=== PATIENT | male | born 1955 | race Caucasian/White ===

== ENCOUNTER 2024-07-27 19:36 | Emergency (ER) | payer MEDICARE, OTHER, SELFPAY ==
[2024-07-27 19:41] VITALS: BP 158/108
--- NOTE | 2024-07-27 22:26 | ED.SKININJ ---
HPI-Injury
General
Chief Complaint: Bite
Time Seen by Provider: 07/27/24 21:04
History of Present Illness-Injury
Initial Injury comments:
68-year-old male with no reported past medical history presenting to the emergency department for concern of dog bite. Patient reports prior to arrival his dog got triggered, 9-month-old puppy, and subsequently bit him in the left first digit. He
reports that the dog's vaccination status is up-to-date. The dog also bit his , so the reader was called who advised that they put the dog down. His tetanus is up-to-date. Denies numbness or tingling to his extremity. Denies additional acute
medical complaints
Phy Exam
Physical Exam
Physical Exam:
General: Well-appearing, no clinical signs of dehydration, nontoxic and in no acute distress
HEENT: protecting airway
Neck: appears supple
CV: Normal heart rate
Resp: No accessory muscle use, no increased work of breathing
Abd: no distension
Extremities: Multiple puncture wounds to the left first digit on the dorsal and ventral side. Superficial laceration at the PIP. Mild swelling. Distal sensation intact. Range of motion intact
Neuro: alert, no focal neurologic deficit
: deferred
Rectal: deferred
Psych: Normal affect
Skin: Intact
Course
Orders/Labs/Results
Orders:
Orders
07/27/24 22:26
Amoxicillin 875 mg/Clav 125 mg [Augmentin 875 mg/125 mg] 1 tablet PO NOW STA
Vital Signs
Initial and Last Documented VS:
Initial Vital Signs
Temp Pulse Resp BP Pulse Ox
98.7 F 108 17 158/108 99
07/27/24 19:41 07/27/24 19:41 07/27/24 19:41 07/27/24 19:41 07/27/24 19:41
Last Documented Vital Signs
Temp Pulse Resp BP Pulse Ox
98.7 F 108 17 158/108 99
07/27/24 19:41 07/27/24 19:41 07/27/24 19:41 07/27/24 19:41 07/27/24 19:41
MDM/Problems Addressed
MDM/Problems Addressed:
68-year-old male presenting to the emergency department after a dog bite from his own dog. Vital signs significant for hypertension, however patient very upset on arrival.
On exam, resting comfortably, no acute distress or discomfort. Patient is superficial lacerations to left first digit. Reports that his tetanus is up-to-date. Reports that dog's rabies vaccinations up-to-date, without indication for rabies
series. Wound was extensively irrigated and dressed with bacitracin and nonadherent dressing. No indication for sutures at this time. Feel stable for discharge with wound reassessment in 2 to 3 days. Patient started on Augmentin. Return
precautions discussed and patient verbalized understanding
*Critical Care Note
Total Time (30-74mins, 75-104mins- exclusive of procedures): Not Applicable
ED Attending Note
-
Portions of this chart may have been created with voice recognition software.� Occasional wrong word or��sound alike� substitutions may have occurred due to the inherent limitations of voice recognition software.
Discharge Plan
Departure
Patient Disposition: Home (Routine Discharge)
Date of Disposition: 07/27/24
Time of Disposition: 22:24
Patient with high blood pressure during this ER visit?: Yes
Condition: Good
Discharge Problem:
Infected dog bite of left index finger
Instructions: Animal Bites (DC), Wound Care (DC)
Prescriptions:
New
amoxicillin-pot clavulanate 875-125 mg tablet
1 tab PO BID Qty: 14 0RF
Referrals:
Deng Solorzano DO [Family Provider] -
Activity Restrictions/Additional Instructions:
You were seen in the emergency department for dog bites
You were found to have multiple bites your left index finger. Please take your antibiotics as prescribed. If you find any increased swelling, redness, or abnormal drainage, return for concern of infection
Please follow-up closely with your primary care physician.
Return to the emergency department for any worsening of your symptoms, or any development of chest pain, difficulty breathing, abdominal pain with persistent vomiting and inability to tolerate food or liquid by mouth (concern for dehydration),
weakness, headache or confusion, fever greater than 100.4, or any additional symptoms that are concerning to you.
Thank you for choosing [facility].
Interventions
Interventions:
*Risk Screen - Suicide Last Done: 07/27/24 19:43
*General Assessment Last Done: 07/27/24 19:42
*Neglect/Abuse Screening Last Done: 07/27/24 19:42
*ED COVID-19 Vaccine History Last Done: 07/27/24 19:42
ED-Skin Assessment Last Done: 07/27/24 21:32
Discharge Date and Time
Print Language: BENGALI
[2024-07-27] MEDS: AUGMENTIN 875 MG/125 MG 1 TABLET PO (22:30)
== END 2024-07-27 22:42 | disposition home or self-care (01) ==
LOC: EMR 19:36
PROVIDERS: EMERGENCY PHYSICIAN Student in an Organized Health Care Education/Training Program; FAMILY PHYSICIAN Family Medicine
DX: L08.9 Local infection of the skin and subcutaneous tissue, unspecified (principal); S61.251A Open bite of left index finger without damage to nail, initial encounter; W54.0XXA Bitten by dog, initial encounter
CPT/HCPCS: 99282

== ENCOUNTER 2024-11-13 21:33 | Emergency (ER) | payer MEDICARE, OTHER, SELFPAY ==
[2024-11-13 21:40] VITALS: BP 132/98
--- NOTE | 2024-11-13 23:46 | ED.GENMED ---
History of Present Illness
General
Chief Complaint: Skin Surface Trauma
Source: patient
Exam Limitations: none
Time Seen by Provider: 11/13/24 23:42
Nursing documentation reviewed up to this point in time: agreed with
History of Present Illness
History of Present Illness:
This is a 69 y/o male with no pmh who presents to the emergency department today with concerns of a laceration of his right upper arm. Patient reports that he was working outside today when he was having a conversation with his and got
distracted and stretched his arm back, hitting his arm against the ladder and cutting his right upper arm on the ladder behind him. He received his tetanus vaccination update within the past year. Patient did not fall. Patient denies any other
injuries. Patient states that after the injury he immeadiatley irrigated the wound and applied wound gel.
Review of Systems
Review of Systems
All Other Systems: ROS reviewed and negative except as documented in HPI and ROS
Phy Exam
Physical Exam
Physical Exam:
General: Patient is well appearing and in no acute distress; non-toxic
Skin: Warm and dry, 4 cm v shaped laceration to right anterior proximal arm, scattered abrasions noted over right forearm; brisk capillary refill
Head: Normocephalic, atraumatic
Eyes: Sclera non-icteric. EOMs intact.
Cardiac: Regular rate
Peripheral Vascular: No lower extremity swelling or edema
Pulm: Normal respiratory effort
Musculoskeletal: No bony tenderness to palpation of the right upper extremity, full ROM
Neuro: CN II-XII intact, no focal neurologic deficits. Sensation intact.
Psychiatric: Appropriate mood and affect.
Course
Vital Signs
Initial and Last Documented VS:
Initial Vital Signs
Temp Pulse Resp BP Pulse Ox
98 F 119 18 132/98 96
11/13/24 21:40 11/13/24 21:40 11/13/24 21:40 11/13/24 21:40 11/13/24 21:40
Last Documented Vital Signs
Temp Pulse Resp BP Pulse Ox
98 F 119 18 132/98 96
11/13/24 21:40 11/13/24 21:40 11/13/24 21:40 11/13/24 21:40 11/13/24 21:40
Procedures
Laceration Closure
Right Proximal Arm:
Status of Wound: clean
Size of Wound in cm: 4
Description of Wound Edges: flap-well vascularized
Preparation: cleaned with saline
Anesthesia: 1% Lidocaine with epi
Revision/Debridement: routine- no revision
Wound exploration: explored to base- no FB
Skin Closure Material: skin charles
Number of sutures: 7
MDM/Problems Addressed
Differential Diagnosis Includes:
ddx include laceration, abrasion, contusion
MDM/Problems Addressed:
This is a 69 y/o male with no pmh who presents to the emergency department today with concerns of a laceration of his right upper arm. This happened after he scrapped his arm on a ladder that was propped up against his house. Patient does not take
any thinners. He denies any other injuries. He is UTD on his vaccinations. Wound throughly irrigated, no indication for abx at this time, wound repaired with stitches, patient stable for discharge.
Chronic conditions affecting care:
n/a
*Pulse Oximetry
Patient hypoxic: no
*Critical Care Note
Total Time (30-74mins, 75-104mins- exclusive of procedures): Not Applicable
ED Attending Note
-
Portions of this chart may have been created with voice recognition software.� Occasional wrong word or��sound alike� substitutions may have occurred due to the inherent limitations of voice recognition software.
Discharge Plan
Departure
Patient Disposition: Home (Routine Discharge)
Date of Disposition: 11/14/24
Time of Disposition: 01:10
Patient with high blood pressure during this ER visit?: Yes
Condition: Good
Discharge Problem:
Laceration of arm
Instructions: Laceration Repair With Stitches (DC), BLOOD PRESSURE
Prescriptions:
No Action
amoxicillin-pot clavulanate 875-125 mg tablet
1 tab PO BID Qty: 14 0RF
Referrals:
Deng Solorzano DO [Family Provider, Family Practice]
Activity Restrictions/Additional Instructions:
You had 7 stitches placed today. Please return to the emergency department, urgent care, or your family doctor to have the stitches removed in 7 to 10 days.
Please keep the wound dry for 24 hours. After 24 hours, you can change her dressing once daily. You can apply bacitracin over the wound once daily. Please do not use hydrogen peroxide or alcohol over the wound. PLEASE RETURN EMERGENCY DEPARTMENT
IF YOU DEVELOP PURULENT DRAINAGE FROM THE WOUND, SURROUNDING REDNESS, INCREASING PAIN, FEVERS OR CHILLS, OR ANY OTHER SIGNS OR SYMPTOMS WORRISOME TO YOU.
Interventions
Interventions:
*Risk Screen - Suicide Last Done: 11/13/24 21:40
*General Assessment Last Done: 11/13/24 21:40
*Neglect/Abuse Screening Last Done: 11/13/24 21:40
*ED- Fall Risk Assessment Last Done: 11/14/24 01:25
*ED COVID-19 Vaccine History Last Done: 11/14/24 01:25
*Nursing Disposition Last Done: 11/14/24 01:25
ED-Skin Assessment Last Done: 11/14/24 01:22
Discharge Date and Time
Discharge Date/Time: 11/14/24 01:26
Print Language: MONTENEGRIN
== END 2024-11-14 01:26 | disposition home or self-care (01) ==
LOC: EMR 21:33
PROVIDERS: EMERGENCY PHYSICIAN Emergency Medicine; FAMILY PHYSICIAN Family Medicine
DX: S41.111A Laceration without foreign body of right upper arm, initial encounter (principal); W22.8XXA Striking against or struck by other objects, initial encounter
CPT/HCPCS: 12002; 99282

== ENCOUNTER 2025-02-05 18:37 | Emergency (ER) | payer MEDICARE, OTHER, SELFPAY ==
[2025-02-05 18:39] VITALS: BP 157/112
[2025-02-05 20:31] LABS: Hematocrit 44.3 % (39.0-52.0); Hemoglobin 15.2 g/dL (13.0-18.0); Mean Corp Hgb Conc. 34.3 g/dL (33.0-37.0); Mean Corpuscular Volume 89.9 fL (80.0-94.0); Nucleated Red Blood Cells % 0 % (-); Platelet Count 229 10^3/uL (130-400); Red Cell Dist. Width 13.1 % (11.5-14.5)
[2025-02-05 20:46] LABS: ALT (SGPT) 35 U/L (0-50); AST (SGOT) 41 U/L (17-59); Albumin 4.5 g/dl (3.5-5.0); Alkaline Phosphatase 94 U/L (38-126); Blood Urea Nitrogen 25 mg/dl (9-20); Calcium 9.5 mg/dl (8.4-10.2); Carbon Dioxide 27 mmol/L (22-30); Chloride 104 mmol/L (98-107); Glucose 105 mg/dl (70-99); Potassium 3.7 mmol/L (3.5-5.1); Sodium 138 mmol/L (135-145); Total Protein 8.0 g/dl (6.3-8.2); eGFR > 60.00
[2025-02-05 20:47] VITALS: BP 157/109
--- NOTE | 2025-02-05 21:31 | ED.GENMED ---
History of Present Illness
General
Chief Complaint: Skin Problem
Source: patient
Exam Limitations: none
Time Seen by Provider: 02/05/25 20:32
Nursing documentation reviewed up to this point in time: agreed with
History of Present Illness
History of Present Illness:
see MDM
Review of Systems
Review of Systems
Allergies reviewed?: Yes
All Other Systems: Not applicable
Phy Exam
Physical Exam
Physical Exam:
GENERAL: Alert , in no apparent distress, comfortable at rest
HEAD: NCAT
CV: cap refill intact L hand
radial pulse normal
NEUROLOGICAL: Alert and oriented, no focal neuro deficits, , 5/5 strength, sensation intact, ambulation slight limp right leg
SKIN: Warm and dry, red/warm L dorsal hand
small wounds 0.5 cm L dorsal hand and small 3 mm laceration proximal hand
very small surroundig erythema
STS to hand to MCPs but not past
MUSCULOSKELETAL: flexor tendons intact
full painless ROM
no streaking up arm
PSYCH: Normal and appropriate interaction.
Course
Orders/Labs/Results
Orders:
Orders
02/05/25 20:20
Complete Blood Count/With Diff Urgent
Comprehensive Metabolic Panel Urgent
02/05/25 21:29
Amoxicillin 875 mg/Clav 125 mg [Augmentin 875 mg/125 mg] 1 tablet PO NOW STA
Abnormal Lab Results
02/05/25
20:20
Absolute Neuts (auto) 7.7 H 10^3/uL
(1.4-6.5)
Absolute Monos (auto) 0.9 H 10^3/uL
(0.1-0.6)
Lymphocytes % 17.9 L %
(20.5-51.1)
BUN 25 H mg/dl
(9-20)
Glucose 105 H mg/dl
(70-99)
02/05/25 20:20
02/05/25 20:20
Vital Signs
Initial and Last Documented VS:
Initial Vital Signs
Temp Pulse Resp BP Pulse Ox
37.1 C 113 18 157/112 98
02/05/25 18:39 02/05/25 18:39 02/05/25 18:39 02/05/25 18:39 02/05/25 18:39
Last Documented Vital Signs
Temp Pulse Resp BP Pulse Ox
37.1 C 104 16 157/109 95
02/05/25 18:39 02/05/25 20:47 02/05/25 20:47 02/05/25 20:47 02/05/25 20:47
MDM/Problems Addressed
Differential Diagnosis Includes:
see MDM
MDM/Problems Addressed:
Note:
CHIEF COMPLAINT(S)
Dog bite on the patients hand followed by strain injury.
HISTORY OF PRESENT ILLNESS
The patient is a 69-year-old male presenting with swelling and pain on the dorsal side of his hand. The initial injury occurred on 3 days ago at around 4 PM when the patient was accidentally bitten by his dog while playing. . The next day, the
patient experienced an exacerbation of symptoms when he attempted to prevent his motorcycle from falling, resulting in a strain of his hand. This incident caused more pain, described as a 'major strain' and was accompanied by puffiness of the hand
noticed today along with redness;. The patient reported that the swelling was severe enough that he could not see his knuckles before beginning self-administered doses of amoxicillin, which improved his symptoms. he had 2 doses of 500 mg that he had
left over from previous
no fever, drainage, streaking.
PAST MEDICAL AND SURIGICAL HISTORY
The patient reports a history of trigger finger.
CHRONIC MEDICAL CONDITIONS SIGNIFICANTLY AFFECTING CARE
Trigger finger.
SOCIAL DETERMINANTS AFFECTING HEALTH
The patient is self-employed as a jeweler, potentially impacting his ability to rest the injured hand due to occupational demands.
SOCIAL HISTORY
The patient is right-handed.
REVIEW OF SYSTEMS
- Dermatologic: Redness and swelling on the dorsal side of the hand.
- Musculoskeletal: Pain and strain in the hand, with improvement after medication.
PHYSICAL EXAM
- Musculoskeletal: Dorsum of the hand is swollen, with visible swelling extending towards the arm without streaking upward.
- Nursing notes reviewed and vital signs reviewed.
PLAN
1. Transition from the self-administered amoxicillin to a prescribed regimen of Augmentin, with an initial dose given today followed by twice daily dosing starting tomorrow.
2. Monitor the condition of the hand for any worsening of symptoms, such as streaking or fever. Return to care if these symptoms develop.
3. Utilize a Velcro splint to limit movement of the affected hand for a couple of days, allowing for removal during showering.
4. Patient advised to discard leftover penicillin.
DIFFERENTIAL DIAGNOSIS
The Differential Diagnosis includes, in no particular order and is not limited to:
1. Cellulitis from dog bite
2. Abscess formation
3. Tendonitis after strain injury
4. Lymphangitis
5. Osteomyelitis secondary to dog bite
6. Foreign body reaction
7. Soft tissue hematoma
8. Acute arthritis
9. Trigger finger exacerbation
10. Septic arthritis
69 y/o M R hand dominnat
here with L hand swelling and redness
knicked by dog 3 days ago
wound was small and he cleaned it and put a bandaid on it
but then yesterday he went to catch his motorcycle that was falling and felt like he strained it and ever since, it is more painful/swollen/red
though since taking 2 doses of amox today, he feels it is less swollen
no fever/chills
pt has no evidence of lymphangitis
no fever
wbc normal
mild STS
flexor tendons intact
will splint for healing
augmentin
tetanus UTD
*Pulse Oximetry
SaO2: 95
Oxygen Mode of Delivery: Room air
Patient hypoxic: no (95)
*Critical Care Note
Total Time (30-74mins, 75-104mins- exclusive of procedures): Not Applicable
ED Attending Note
-
Portions of this chart may have been created with voice recognition software.� Occasional wrong word or��sound alike� substitutions may have occurred due to the inherent limitations of voice recognition software.
Discharge Plan
Departure
Patient Disposition: Home (Routine Discharge)
Date of Disposition: 02/05/25
Time of Disposition: 21:42
Patient with high blood pressure during this ER visit?: Yes
Condition: Fair
Covid-19: Not Applicable
Discharge Problem:
Cellulitis of hand, Dog bite of dorsum of hand
Instructions: Cellulitis (Skin Infection), Adult (DC), Animal bites - ED (DC), BLOOD PRESSURE
Prescriptions:
New
amoxicillin-pot clavulanate 875-125 mg tablet
1 tab PO BID Qty: 14 0RF
No Action
amoxicillin-pot clavulanate 875-125 mg tablet
1 tab PO BID Qty: 14 0RF
Referrals:
Deng Solorzano DO [Family Provider, Family Practice] - Follow up in 2-3 days
Activity Restrictions/Additional Instructions:
Elevate your hand over the next couple days, use a splint to make sure that you are resting it. Watch for any worsening streaking up your arm or worsening redness or swelling or pain return. Otherwise Augmentin twice a day starting tomorrow for 7
days. Ibuprofen or Tylenol for pain. Your blood pressure was elevated, make sure to have this repeated
Interventions
Interventions:
*Risk Screen - Suicide Last Done: 02/05/25 18:43
*General Assessment Last Done: 02/05/25 18:43
*Neglect/Abuse Screening Last Done: 02/05/25 18:43
*ED- Fall Risk Assessment Last Done: 02/05/25 20:19
*ED COVID-19 Vaccine History Last Done: 02/05/25 20:19
ED-Skin Assessment Last Done: 02/05/25 20:47
Discharge Date and Time
Print Language: LATVIAN
[2025-02-05] MEDS: AUGMENTIN 875 MG/125 MG 1 TABLET PO (21:39)
--- NOTE | 2025-02-05 21:43 | EDRN ---
Splint applied to left hand
== END 2025-02-05 22:03 | disposition home or self-care (01) ==
LOC: EMR 18:37
PROVIDERS: Emergency Medicine; EMERGENCY PHYSICIAN Emergency Medicine; FAMILY PHYSICIAN Family Medicine
DX: S61.452A Open bite of left hand, initial encounter (principal); L03.114 Cellulitis of left upper limb; W54.0XXA Bitten by dog, initial encounter
CPT/HCPCS: 99283; 80053; 85025